=== PATIENT | female | born 1965 | race Caucasian/White ===

== ENCOUNTER 2020-07-26 12:39 | Outpatient (REF) | payer OTHER, SELFPAY ==
--- NOTE | 2020-07-26 12:45 | MM_ITS ---
EXAMINATION: MM SCREENING DIGITAL BREAST TOMOSYNTHESIS, BILATERAL CLINICAL INFORMATION: Screening. Asymptomatic. The lifetime risk of breast cancer based on the Tyrer-Cuzick Model is 7%. COMPARISON: Mammography: 07/21/2019, 07/15/2018, 01/24/2017, 01/10/2017 TECHNIQUE: Digital breast tomosynthesis is performed in both the craniocaudal and mediolateral oblique views along with computer-aided detection (CAD). Synthesized 2D images are generated from the tomosynthesis. FINDINGS: There are scattered areas of fibroglandular density (ACR BI-RADS breast composition Category b). There are no significant masses, abnormal calcifications, or other abnormalities. Small nodular asymmetry mid outer right breast on CC view is stable from prior exams. There is no developing density. The axilla and skin contours are unremarkable. MM/MM tomosynthesis screening BI IMPRESSION: No significant changes from prior studies. ASSESSMENT: BI-RADS 2: Benign RECOMMENDATION: Routine annual mammography screening. This patient's information was entered into a reminder system with a target due date for their next mammogram.
== END 2020-07-26 12:40 | disposition home or self-care (01) ==
LOC: HO.MAMMO 12:39
PROVIDERS: Visit Provider Internal Medicine
DX: Z12.31 Encounter for screening mammogram for malignant neoplasm of breast (principal)
CPT/HCPCS: 77063; 77067

== ENCOUNTER 2020-09-07 12:55 | Outpatient (REF) | payer MEDICAID, SELFPAY ==
--- NOTE | 2020-09-08 16:04 | MHC.AU.P13 ---
Adult Audiological Evaluation Date of Visit: 09/07/20 Reason for Appointment: Audiological evaluation to monitor the status of patient's hearing loss. Patient notes that she still has some trouble hearing even with the hearing aids and that the left aid has been intermittent. She denies any changes to her medical history. Previous Hearing Test [place] [facility] [place] Mild sensorineural hearing loss in the left ear, moderate to moderately severe mixed hearing loss in the right ear. Ear History: Family History of Hearing Loss?: Yes: Parents and son Ear Infections in Childhood: Both Ears Previous Ear Surgery: Right Ear Bothersome Tinnitus/Ringing/Noises in Ears: Both Ears Medical History: Medical History: Unremarkable Medical History Hearing Instrument History- Right Ear: Economic Analysis Director: Phonak Model: [place] microP Serial Number: [id number] Battery Size: 13 Repair Warranty: Loss and Damage Warranty: Dispensed By: [facility] Date of Fittin01/19/2012 Hearing Instrument History- Left Ear: Economic Analysis Director: Phonak Model: Veronica microP Serial Number: [id number] Battery Size: 13 Warranty: Loss and Damage Warranty: Dispensed By: [facility] Date of Fittin01/19/2012 Otoscopy: Right Ear: Mostly occluding cerumen. Unable to view TM. Did not attempt removal. Left Ear: Unremarkable Tympanometry: Tympanometry performed due to: History of conductive hearing loss Right Ear: Non-compliant Middle Ear System (Type B), Large ear canal volume suggestive of Tympanic Membrane Perforation Left Ear: Normal Middle Ear System (Type A) Hearing Evaluation: Transducer(s) Used: Insert Earphones, Bone Conduction Method: Conventional Audiometry Stimuli Used: Pure Tones Right Ear: Description of Hearing: Severe hearing loss at 250 Hz, rising to a moderately severe conductive hearing loss at 500 Hz, and moderately severe mixed hearing loss from 1799-7318 Hz. Left Ear: Description of Hearing: Mild hearing loss at 250 Hz, mild conductive hearing loss at 500 Hz, sloping to a moderate mixed hearing loss at 1000 Hz, a moderate sensorineural hearing loss at 2000 Hz, and a moderate mixed hearing loss 5489-2313 Hz. Speech Recognition Threshold (SRT): Method Used: Monitored Live Voice Stimuli Used: Spondee Words Right Ear: 60 dBHL Left Ear: 40 dBHL Word Discrimination: Method: Recorded Lists Word Lists Used: NU-6 Right Ear: 88% at 85 dBHL Left Ear: 100% at 80 dBHL Comparison: Compared to the most recent evaluation: Thresholds have decreased bilaterally. Recommendations: Audiological re-evaluation in one year. Trial with amplification is recommended. Medical clearance from a physician is required before fitting. Hearing Aid Fitting will be scheduled when all materials arrive. Follow-up with physician for cerumen removal. Referral to Ear, Nose, and Throat to address middle ear dysfunction. Hearing aid maintenance performed today. Hearing aid(s) reprogrammed with updated test results. See Hearing Aid Evaluation report for more information. See Hearing Aid Follow-Up note for more information. Recommend follow-up with her ENT Dr. Hankins. She states that she hasn't been seen by ENT in over 5 years. Given large ear canal volume suggestive of TM perforation in the right ear and the build-up of cerumen in the right canal, it is recommended that she see ENT before returning for a hearing aid fitting. Updated amplification is recommended. Discussed options. Medical clearance is being requested and then aids will be ordered. Diagnosis: Primary Diagnosis: H90.6 Mixed Hearing Loss, Bilateral Services Performed: Comprehensive Audiological Evaluation (CPT 07104) Tympanometry (CPT 51110) Signature: Provider: Cornel Downey, CCC-A
--- NOTE | 2020-09-09 08:55 | MHC.AU.MED ---
Medical Clearance for Hearing Instrumentation Date: 09/09/20 Patient Name: Tracey Singh Date of : 1965 Primary Care Provider: Referring Provider: Marion Roland MD We have seen your patient on 09/09/20 and have determined that they are a candidate for amplification (See accompanying report). Specifically, they would benefit from: Hearing aid use in both ears There is a statute that addresses Medical Evaluation Requirements prior to fitting a patient with a hearing aid. According to [place] statute 265 CMR:6.03(1), (a) General. Except as provided in 265 CMR 6.03(1)(b), a youth support worker shall not sell a hearing aid unless the prospective user has presented to the youth support worker a written statement signed by a licensed physician that states that the patient's hearing loss has been medically evaluated and the patient may be considered a candidate for a hearing aid. The medical evaluation must have taken place within the preceding six months. Please note: Due to the [place] Statute referenced above, we cannot accept a signature other than that of a licensed physician. MERCHANDISING TEAM LEAD and PA signatures cannot be accepted. I am in agreement with the above recommendation. There is no medical contraindication for hearing instrumentation. Physician Signature Date Physician Name (Printed)
--- NOTE | 2020-09-09 08:55 | MHC.AU.P13 ---
Hearing Aid Evaluation- Binaural Date of Visit: 09/07/20 Description of Hearing: Mild to moderate mixed hearing loss in the left ear, moderately severe to severe mixed hearing loss in the right ear. Current Hearing Instrument Information: 2011 Phonak Veronica BTE Additional Information: Ms. Lopez is due for updated amplification. She notes that her current left hearing aid is intermittent and she doesn't always hear well. Binaural amplification is recommended to facilitate improved communication. She is interested in LANETTE style hearing aids. Could not take earmold impressions today due to wax in the right ear. If she is not happy with the domes, we can order earmolds later when her ear is clear. Hearing Instrument Selection: Right Ear: Museum Registrar: Phonak Model: [employer] P70-13T Battery Size: 13 Color: Black Technology Adoption Manager: Size 1 M Type of Dome: Power Left Ear: Museum Registrar: Phonak Model: [employer] P70-13T Battery Size: 13 Color: Black Technology Adoption Manager: Size 1 M Type of Dome: Vented Plan: Plan of Care for Hearing Instrument Fitting: Patient wishes to purchase hearing aids as prescribed Action Taken/Action Needed: Medical Clearance to be requested from PCP/ENT Hearing Fitting to be scheduled when materials arrive Comments: Aids will be ordered once Medical Clearance is received. Signature: Provider: Cornel Downey, CHERYL-A
== END 2020-09-07 12:56 | disposition home or self-care (01) ==
LOC: HO.SH 12:55
PROVIDERS: Visit Provider Internal Medicine
DX: Z46.1 Encounter for fitting and adjustment of hearing aid (principal); H90.6 Mixed conductive and sensorineural hearing loss, bilateral
CPT/HCPCS: 92557; 92567; 92591; 92593; 99499

== ENCOUNTER 2020-10-06 13:34 | Outpatient (REF) | payer MEDICAID, SELFPAY | END 2020-10-06 13:35 | disposition home or self-care (01) | LOC: HO.HAP 13:34 | PROVIDERS: Visit Provider Internal Medicine | DX: Z46.1 Encounter for fitting and adjustment of hearing aid (principal) | CPT/HCPCS: V5011; V5020; V5160; V5261; V5266; V5275 ==

== ENCOUNTER 2020-10-22 09:07 | Outpatient (REF) | payer MEDICAID, SELFPAY | END 2020-10-22 09:08 | disposition home or self-care (01) | LOC: HO.HAP 09:07 | PROVIDERS: Visit Provider Internal Medicine | DX: Z46.1 Encounter for fitting and adjustment of hearing aid (principal); H90.6 Mixed conductive and sensorineural hearing loss, bilateral | CPT/HCPCS: V5264 ==

== ENCOUNTER 2022-01-19 12:28 | Outpatient (REF) | payer MEDICAID, SELFPAY | END 2022-01-19 12:29 | disposition home or self-care (01) | LOC: HO.HAP 12:28 | PROVIDERS: Visit Provider Nurse Practitioner | DX: Z46.1 Encounter for fitting and adjustment of hearing aid (principal); H90.6 Mixed conductive and sensorineural hearing loss, bilateral | CPT/HCPCS: 92593 ==

== ENCOUNTER 2022-01-20 14:20 | Outpatient (REF) | payer MEDICAID, SELFPAY | END 2022-01-20 14:21 | disposition home or self-care (01) | LOC: HO.HAP 14:20 | PROVIDERS: Visit Provider Nurse Practitioner | DX: Z13.89 Encounter for screening for other disorder (principal) ==

== ENCOUNTER 2022-04-06 11:02 | Outpatient (REF) | payer MEDICAID, SELFPAY | END 2022-04-06 11:03 | disposition home or self-care (01) | LOC: HO.SH 11:02 | PROVIDERS: Visit Provider Nurse Practitioner | DX: H90.6 Mixed conductive and sensorineural hearing loss, bilateral (principal) | CPT/HCPCS: 92557 ==

== ENCOUNTER 2022-05-02 12:41 | Outpatient (REF) | payer MEDICAID, SELFPAY ==
[2022-05-02 13:36] LABS: Hematocrit 42.9 % (37.0-47.0); Hemoglobin 14.4 g/dl (12.0-16.0); Mean Corpuscular HGB Conc 33.6 g/dl (31.0-35.0); Mean Corpuscular Hemoglobin 28.7 pg (27.0-33.0); Mean Corpuscular Volume 85.5 fL (80.0-98.0); Mean Platelet Volume 11.4 fL (9.4-12.3); Platelet Count 204 X10*3/uL (160-400); Red Blood Count 5.02 X10*6/uL (4.20-5.50); White Blood Count 7.3 X10*3/uL (4.8-10.8)
[2022-05-02 14:08] LABS: Alanine Aminotransferase 66 U/L (0-31); Alkaline Phosphatase 83 U/L (39-117); Anion Gap 14 (12-20); Aspartate Amino Transferase 51 U/L (5-31); Bilirubin Total 0.7 mg/dL (0.0-1.0); Blood Urea Nitrogen 11 mg/dL (9-16); Calcium 9.6 mg/dL (8.4-10.2); Carbon Dioxide 26 mmol/L (22-29); Chloride 104 mmol/L (96-108); Estimated Glomerular Filt Rate > 60; Glucose Random 112 mg/dL (60-115); Potassium 3.7 mmol/L (3.3-5.1); Sodium 140 mmol/L (135-145)
[2022-05-03 14:57] LABS: H Pylori Breath Test Negative (Negative)
== END 2022-05-02 12:42 | disposition home or self-care (01) ==
LOC: HO.LAB 12:41
PROVIDERS: PCP Nurse Practitioner; Visit Provider Nurse Practitioner Family
DX: K21.9 Gastro-esophageal reflux disease without esophagitis (principal); K59.01 Slow transit constipation; Z01.818 Encounter for other preprocedural examination
CPT/HCPCS: 36415; 80053; 83013; 85027; 99202

== ENCOUNTER 2022-08-11 15:11 | Outpatient (REF) | payer MEDICAID, SELFPAY | END 2022-08-11 15:12 | disposition home or self-care (01) | LOC: HO.HAP 15:11 | PROVIDERS: Visit Provider Nurse Practitioner | DX: Z46.1 Encounter for fitting and adjustment of hearing aid (principal); H90.6 Mixed conductive and sensorineural hearing loss, bilateral | CPT/HCPCS: 92593; 99499 ==

== ENCOUNTER 2022-08-14 16:13 | Outpatient (REF) | payer MEDICAID, SELFPAY | END 2022-08-14 16:14 | disposition home or self-care (01) | LOC: HO.HAP 16:13 | PROVIDERS: Visit Provider Nurse Practitioner | DX: Z13.89 Encounter for screening for other disorder (principal) ==

== ENCOUNTER 2022-08-23 11:13 | Day surgery (SDC) | payer MEDICAID, SELFPAY ==
[2022-08-17 14:51] VITALS: BMI 30.9
--- NOTE | 2022-08-22 12:51 | P.CONAN_ITS ---
Documented by User: Emily Islas NP 08/22/22 12:52 HPI - Anesthesia Eval Consult details Narrative: 56yo F for Upper Endoscopy and Colonoscopy [facility] Past Medical History Medical History (Updated 08/17/22 @ 14:50 by Elissa Hernandez RN) Diabetes mellitus GERD (gastroesophageal reflux disease) Family History Family History (Updated 05/02/22 @ 11:24 by Scott Paulino) Mother Diabetes Heart disease High cholesterol Father Heart disease Sister High cholesterol Diabetes Brother High cholesterol Heart disease Diabetes Surgical History Surgical History (Updated 08/17/22 @ 14:38 by Elissa Hernandez RN) History of cholecystectomy Hx of external ear surgery Hx of tubal ligation Social History Social History (Updated 04/27/22 @ 16:04 by Scott Paulino) Household Members: Spouse Are you a primary behavioral health care coordinator to a significant other at home: No Do you presently have visiting nurse or other home services: No Alcohol intake: never Patient Tobacco Use Status: Never used Tobacco e-Cigarette/Vaping Use: Never Used Use of substances other than those prescribed or required for medical reasons: No Have you been hit, kicked, punched, or otherwise hurt by someone within the past year? If so, by whom?: No Are you DNR?: No Advance Directives: No Advance Directives Information Provided: Yes (brochure mailed) Advance Directives on File: No Recently lost weight without trying: No Eating poorly because of decreased appetite: No Nutrition Risks: No Nutritional Risk Poor oral hygiene: No (missing teeth upper & lower) Meds Allergies Allergy/AdvReac Type Severity Reaction Status Date / Time insulin glargine Allergy Intermediate Rash Verified 08/17/22 14:50 [From Lantus U-100 Insulin] Home Medications Medication Instructions Recorded Confirmed Last Taken Type metformin 500 mg tablet 500 mg PO BID 05/02/22 08/17/22 Unknown History cholecalciferol (vitamin D3) 25 25 mcg PO DAILY 08/17/22 08/17/22 Unknown History mcg (1,000 unit) capsule (Vitamin D3) Exam Exam Date and Time: August 22, 2022 1251 Height,Weight and Vital Signs: Height 5 ft 4 in Weight 81.647 kg Pertinent Lab Results Pertinent Lab Results: Laboratory Tests 05/02/22 05/02/22 12:53 12:53 WBC 7.3 Hgb 14.4 Hct 42.9 Plt Count 204 Sodium 140 Potassium 3.7 Chloride 104 Carbon Dioxide 26 BUN 11 Creatinine 0.81 Assessment and Plan Assessment Anesthesia Assessment: Chart Reviewed Documented by User: Ainsley Jones MD 08/23/22 11:44 [facility] Past Medical History Medical History (Updated 08/17/22 @ 14:50 by Elissa Hernandez RN) Diabetes mellitus GERD (gastroesophageal reflux disease) Family History Family History (Updated 05/02/22 @ 11:24 by Scott Paulino) Mother Diabetes Heart disease High cholesterol Father Heart disease Sister High cholesterol Diabetes Brother High cholesterol Heart disease Diabetes Family history of problems with anesthesia: No Surgical History Surgical History (Updated 08/17/22 @ 14:38 by Elissa Hernandez RN) History of cholecystectomy Hx of external ear surgery Hx of tubal ligation History of Problems with Anesthesia: No Social History Social History (Updated 04/27/22 @ 16:04 by Scott Paulino) Household Members: Spouse Are you a primary behavioral health care coordinator to a significant other at home: No Do you presently have visiting nurse or other home services: No Alcohol intake: never Patient Tobacco Use Status: Never used Tobacco e-Cigarette/Vaping Use: Never Used Use of substances other than those prescribed or required for medical reasons: No Have you been hit, kicked, punched, or otherwise hurt by someone within the past year? If so, by whom?: No Are you DNR?: No Advance Directives: No Advance Directives Information Provided: Yes (brochure mailed) Advance Directives on File: No Recently lost weight without trying: No Eating poorly because of decreased appetite: No Nutrition Risks: No Nutritional Risk Poor oral hygiene: No (missing teeth upper & lower) Meds Allergies Allergy/AdvReac Type Severity Reaction Status Date / Time insulin glargine Allergy Intermediate Rash Verified 08/17/22 14:50 [From Lantus U-100 Insulin] Home Medications Medication Instructions Recorded Confirmed Last Taken Type metformin 500 mg tablet 500 mg PO BID 05/02/22 08/17/22 Unknown History cholecalciferol (vitamin D3) 25 25 mcg PO DAILY 08/17/22 08/17/22 Unknown History mcg (1,000 unit) capsule (Vitamin D3) Exam Airway Mallampati Class: II TM Dist: >3cm Neck ROM: Full Heart: rrr Lungs: cts Assessment and Plan Assessment Anesthesia Assessment: Anesthesia Plan Discussed Final Anesthetic Review Family History of Problems with Anesthesia: No History of Problems with Anesthesia: No NPO: Yes ASA Class: II Final Preanesthetic Review: No Changes in Pt Med Stat, Meds/Allgs Chart Reviewed and Consent Obtained/Reviewed Patient Risk: Intermediate Procedure Risk: Intermediate Anesthetic Plan Anesthetic Plan: MAC: Disposition: Standard PACU
[2022-08-23 11:36] VITALS: BP 147/88; PULSE 79; RESP 18; TEMP 36.6; O2SAT 98; BMI 31.2
--- NOTE | 2022-08-23 11:38 | MHC.SHP ---
Pre-Procedural Eval Section A Date of Service: 08/23/22 Section B Chief Complaint: screening, reflux Relevant Family History (Specify if Yes): No Relevant Social History: None Present Medications: see Short Stay Collaborative assessment Medical History: Significant History (Diabetes mellitus GERD (gastroesophageal reflux disease)) History of Previous Operations: Relevant previous surgery/procedure and date(s) (History of cholecystectomy Hx of external ear surgery Hx of tubal ligation) Allergies: Allergies Allergy/AdvReac Type Severity Reaction Status Date / Time insulin glargine Allergy Intermediate Rash Verified 08/17/22 14:50 [From Lantus U-100 Insulin] Review of Systems Sugical H&P ROS: Negative: Constitution, Cardiovascular, Respiratory, Neurological, Psychiatric, Hem-Onc, Allergic/Immunologic, Gastrointestinal, Genitourinary, Musculoskeletal, Integumentary, Endocrine and Eyes/Ears/Nose/Throat Exam Surgical H&P Exam: Normal: HEENT, Normal: Heart, Normal: Lungs, Normal: Extremities, Normal: Abdomen, Normal: Skin and Normal: Neurological Plan Diagnosis/Plan: Unchanged I have reviewed the history and physical and performed a pertinent physical examination on my patient. No changes have occurred unless specified. Time Spent With Patient Time: Total time managing care of this patient today ____ minutes.
[2022-08-23 11:43] LABS: Glucose, Whole Blood 161 mg/dL (60-115)
[2022-08-23] MEDS: Lactated Ringers 1,000 ML 100 ML IVCONT (12:05)
--- NOTE | 2022-08-23 12:09 | W.PM.OPN ---
Operative Note Operative Note Date of Service: 08/23/22 Narrative: Operative Information Procedure Description: EGD, Colonoscopy Indication: reflux, colon screening Anesthesia: MAC FLEXIBLE TRANSORAL UPPER GASTROINTESTINAL ENDOSCOPY AND COLONOSCOPY PROCEDURE NOTE UPPER ENDOSCOPY Consent: Indications for the procedure and potential complications of bleeding, perforation, reaction to medications and missed diagnosis were discussed with the patient and informed consent was obtained. Instrument: Olympus GIF H 190 J mid size upper endoscope Monitoring: Vital signs and clinical assessment, continuous EKG monitoring, Pulse oximetry, Carbon Dioxide monitoring and blood pressure monitoring were done throughout the procedure. Procedure: The patient was placed in the left lateral decubitis position and pre-procedure medications were administered and a bite block was placed. The endoscope was inserted into the mouth and advanced under direct vision to the third part of duodenum. A careful inspection was made as the upper endoscope was withdrawn including a retroflexed examination of the proximal stomach; Findings and interventions are described below. Findings: Larynx:normal Esophagus: GE junction at 43 cm, diaphragm hiatus at 43 cm, some bogginess and erythema at GEJ, bx taken as well as from distal and proximal esophagus Stomach: Mild erythema. Biopsies were obtained. Grade 2 flap valve on retroflexed examination of the cardia. Duodenum: Normal bulb and descending duodenum, bx taken Intervention: Biopsies as noted above COLONOSCOPY Instrument: Olympus variable stiffness pediatric scope 190L Colonoscopy Monitoring: Vital signs and clinical assessment, continuous EKG monitoring, Pulse oximetry, Carbon Dioxide monitoring and blood pressure monitoring were done throughout the procedure. Colon withdrawal time was 8 minutes. Procedure: The patient was placed in the left lateral decubitis position and pre-procedure medications were administered. After a digital rectal examination of the ano-rectum, the video colonoscope was inserted into the rectum and advanced through the colon to the cecum/TI. The colonoscope was slowly withdrawn in a retrograde panoramic fashion and the colon mucosa was carefully examined including a retroflexed view of the rectum. Findings and interventions are described below. Procedure Difficulty:easy Findings: Terminal Ileum-not intubated due to prep Cecum:not well see due to poor prep Ascending Colon: normal Transverse Colon -normal Descending Colon:normal Sigmoid Colon: mild diverticulosis Rectum: Retroflexion with small internal hemorrhoids, grade I, 6-8 mm sessile polyp removed with cold forceps Anorectum - normal Colon preparation: [place] Bowel Preparation Scale Right colon; 1-2 (0 at the cecum) Transverse colon: 3 Left colon; 2 (0 = Unprepared colon segment with mucosa not seen due to solid stool that cannot be cleared. 1 = Portion of mucosa of the colon segment seen, but other areas of the colon segment not well seen due to staining, residual stool and/or opaque liquid. 2 = Minor amount of residual staining, small fragments of stool and/or opaque liquid, but mucosa of colon segment seen well. 3 = Entire mucosa of colon segment seen well with no residual staining, small fragments of stool or opaque liquid) Impression and Post Procedure Diagnosis: Endoscopy Findings: esophagitis gastritis Colonoscopy Findings: polyp internal hemorrhoids diverticular disease Plan: Await Pathology results Repeat Colonoscopy in 1 year due to poor view of cecum or earlier if clinically indicated High fiber diet leaflet avoid straining at stool, epsom salts and sitz bath, anusol supps or cream Above findings were reviewed with the patient and relevant handouts were provided if indicated.
[2022-08-23 12:38] VITALS: BP 108/74; PULSE 86; RESP 16; TEMP 36.4; O2SAT 98
[2022-08-23 12:53] VITALS: BP 116/76; PULSE 73; RESP 18; TEMP 36.4; O2SAT 97
== END 2022-08-23 13:36 | disposition home or self-care (01) ==
PROVIDERS: Visit Provider Internal Medicine Gastroenterology
PROC: (CPT 45380; principal; 2022-08-23 11:40)
DX: Z12.11 Encounter for screening for malignant neoplasm of colon (principal); K62.1 Rectal polyp; K57.30 Diverticulosis of large intestine without perforation or abscess without bleeding; K64.0 First degree hemorrhoids; K59.01 Slow transit constipation; K21.9 Gastro-esophageal reflux disease without esophagitis; K29.50 Unspecified chronic gastritis without bleeding; K20.80 Other esophagitis without bleeding; K44.9 Diaphragmatic hernia without obstruction or gangrene; E11.9 Type 2 diabetes mellitus without complications; Z79.84 Long term (current) use of oral hypoglycemic drugs; Z79.899 Other long term (current) drug therapy; Z88.8 Allergy status to other drugs, medicaments and biological substances; Z90.49 Acquired absence of other specified parts of digestive tract
CPT/HCPCS: 45380; 43239; 82947; 88305; 88342

== ENCOUNTER → 2022-09-05 10:57 | Outpatient (BNVA) | payer MEDICAID, SELFPAY | PROVIDERS: Visit Provider Nurse Practitioner Family | DX: K21.00 Gastro-esophageal reflux disease with esophagitis, without bleeding (principal); K57.90 Diverticulosis of intestine, part unspecified, without perforation or abscess without bleeding; Z98.890 Other specified postprocedural states | CPT/HCPCS: 99212 ==

== ENCOUNTER → 2022-12-01 13:39 | Outpatient (BNVA) | payer MEDICAID, SELFPAY | PROVIDERS: Visit Provider Nurse Practitioner Family | DX: K57.90 Diverticulosis of intestine, part unspecified, without perforation or abscess without bleeding (principal); K21.9 Gastro-esophageal reflux disease without esophagitis | CPT/HCPCS: 99212 ==

== ENCOUNTER 2023-12-05 13:02 | Outpatient (REF) | payer OTHER, SELFPAY ==
[2023-12-05 16:59] LABS: Alanine Aminotransferase 69 U/L (0-31); Albumin Level 4.2 g/dL (3.5-5.0); Alkaline Phosphatase 123 U/L (39-117); Anion Gap 16 (12-20); Aspartate Amino Transferase 46 U/L (5-31); Bilirubin Total 1.1 mg/dL (0.0-1.0); Blood Urea Nitrogen 12 mg/dL (9-16); Carbon Dioxide 24 mmol/L (22-29); Chloride 101 mmol/L (96-108); Cholesterol 251 mg/dL (<200); Estimated Glomerular Filt Rate > 60; Glucose Random 229 mg/dL (60-115); HDL Cholesterol 57 mg/dL (>40); LDL Cholesterol Calculated 158 mg/dL (<100); Potassium 4.2 mmol/L (3.3-5.1); Sodium 137 mmol/L (135-145); Total Protein 8.7 g/dL (6.5-8.0); Triglycerides 180 mg/dL (<150)
[2023-12-05 17:54] LABS: Microalbum/Creatinine Ratio Ur 34.8 ug/mg cr (<30)
== END 2023-12-05 13:03 | disposition home or self-care (01) ==
LOC: HO.HHCL 13:02
PROVIDERS: Visit Provider Nurse Practitioner Family
DX: E11.9 Type 2 diabetes mellitus without complications (principal)
CPT/HCPCS: 36415; 80053; 80061; 82043; 82570

== ENCOUNTER → 2023-12-25 08:45 | Outpatient (BNV) | payer SELFPAY | PROVIDERS: PCP Nurse Practitioner Family; Visit Provider Radiology Diagnostic Radiology | DX: Z12.31 Encounter for screening mammogram for malignant neoplasm of breast (principal) | CPT/HCPCS: 77063; 77067 ==

== ENCOUNTER 2023-12-25 09:09 | Outpatient (REF) | payer OTHER, SELFPAY | END 2023-12-25 09:10 | disposition home or self-care (01) | LOC: HO.MAMMO 09:09 | PROVIDERS: PCP Nurse Practitioner Family; Visit Provider Nurse Practitioner Family | DX: Z12.31 Encounter for screening mammogram for malignant neoplasm of breast (principal) | CPT/HCPCS: 77063; 77067 ==

== ENCOUNTER 2024-01-31 22:20 | Emergency (ER) | payer OTHER, SELFPAY ==
--- NOTE | ~2024-01-31 | XR_ITS ---
EXAMINATION: XR LUMBOSACRAL SPINE CLINICAL INFORMATION: Fall COMPARISON: 12/23/2015 TECHNIQUE: Three views of the lumbosacral spine. FINDINGS: No acute fracture. Minimal left convex lumbar curvature. Facet arthropathy is evident at L5-S1. Mild degenerative disc disease in lower lumbar spine, characterized primarily by endplate osteophytes. Vertebral disc heights appear relatively well-preserved. Vertebral body heights are normal. Surgical clips are present in the right upper quadrant. No acute soft tissue findings. XR/XR lumbar spine 2-3V IMPRESSION: 1. No acute fracture or malalignment in the lumbar spine. 2. Mild degenerative disc disease in the lower lumbar spine.
[2024-01-31 22:32] VITALS: BP 142/118; PULSE 90; RESP 18; TEMP 36.9; O2SAT 98; BMI 31.8
[2024-02-01 04:00] VITALS: BP 143/75; PULSE 78; RESP 18; TEMP 36.8; O2SAT 97
--- NOTE | 2024-02-01 04:27 | ED_ITS ---
HPI - Fall General Chief Complaint: Fall Stated Complaint: fell 01/29 tailbone pain Time Seen by Provider: 02/01/24 04:06 Source: patient Mode of arrival: ambulatory Limitations: no limitations History of Present Illness ED Provider: olimpia LE Narrative: Apparently patient has slipped and fell hitting her tailbone to the edge of the bathtub about 2 days ago since then having pain especially when she sits no bladder or bowel involvement no other injuries Related Data Home Medications ?Medication ?Instructions ?Recorded ?Confirmed metformin 500 mg tablet 500 mg PO BID 05/02/22 08/17/22 cholecalciferol (vitamin D3) 25 25 mcg PO DAILY 08/17/22 08/17/22 mcg (1,000 unit) capsule (Vitamin D3) Previous Rx's ?Medication ?Instructions ?Recorded pantoprazole 40 mg tablet,delayed 40 mg PO DAILY #90 tabs 09/05/22 release docusate sodium 100 mg capsule 100 mg PO BEDTIME #90 caps 12/01/22 ibuprofen 600 mg tablet 600 mg PO Q6H PRN fever or pain 02/01/24 #30 tabs Allergies Allergy/AdvReac Type Severity Reaction Status Date / Time insulin glargine Allergy Intermediate Rash Verified 01/31/24 22:37 [From Lantus U-100 Insulin] Review of Systems Review of Systems: Yes all other systems are reviewed and are negative PMFSH Past Medical History Medical History GERD (gastroesophageal reflux disease) Diabetes mellitus Surgical History Hx of colonoscopy History of cholecystectomy Hx of tubal ligation Hx of external ear surgery Family History Family History Mother Diabetes Heart disease High cholesterol Father Heart disease Sister High cholesterol Diabetes Brother High cholesterol Heart disease Diabetes Social History Social History Household Members: Spouse Are you a primary district manager primary care sales to a significant other at home: No Do you presently have visiting nurse or other home services: No Alcohol intake: never Patient Tobacco Use Status: Never used Tobacco e-Cigarette/Vaping Use: Never Used Advance Directives: No Advance Directives Information Provided: Yes Do you have a plan to hurt others: No Plan Physical Exam Vital Signs: Vital Signs: Last Vital Signs Temp 98.3 F 02/01/24 05:16 Pulse 78 02/01/24 05:16 Resp 18 02/01/24 05:16 BP 143/75 H 02/01/24 05:16 Pulse Ox 97 02/01/24 05:16 O2 Del Method Room Air 02/01/24 05:16 BMI result Body Mass Index 31.8 Appearance: Alert. Oriented X3. No acute distress. ENT: Pharynx normal. Oral Mucosa moist Neck: Normal inspection. Neck supple. CVS: Normal heart rate and rhythm. Pulses normal. Respiratory: No respiratory distress. Equal air entry bilateral, Abdomen: Soft and nontender. Bowel sounds are present, back; tender at sacral area no ecchymosis or swelling Skin: Skin warm and dry. Normal skin color. Normal skin turgor. Extremities: No lower extremity edema. No calf tenderness Neuro: Oriented X 3. No motor deficit. No sensory deficit.No cerebellar signs , cranial nerves II-XII intact Medications Administered Discontinued Medications Generic Name Dose Route Start Last Admin Trade Name Freq PRN Reason Stop Dose Admin Oxycodone HCl 5 mg 02/01/24 04:27 02/01/24 05:05 Oxycodone Hcl Immed Release 5 Mg Tablet PO 02/01/24 04:28 5 mg ONCE ONE Administration Medical Decision Making Medical Decision Making [facility] Narrative: Patient with sacral contusion x-ray negative for fracture all the tip of the sacrum was not included in x-ray will discharge patient home on ibuprofen for pain Independent Interpretation I performed an independent interpretation of an: Plain X-Ray Radiology Impression Discussion of test interpretation with radiology: I have reviewed the radiologist's reading. Discharge Plan Discharge Clinical Impression: Contusion of sacrum Patient Disposition: Home, Self-Care Instructions: Acute Low Back Pain (ED) Additional Instructions: Your lumbar spine x-rays negative for fracture Likely have contusion of the sacrum Use air donut to sit on to relieve pressure Ibuprofen for pain Prescriptions: New ibuprofen 600 mg tablet 600 mg PO Q6H PRN (Reason: fever or pain) Qty: 30 0RF No Action cholecalciferol (vitamin D3) [Vitamin D3] 25 mcg (1,000 unit) Capsule 25 mcg PO DAILY pantoprazole 40 mg tablet,delayed release (DR/EC) 40 mg PO DAILY Qty: 90 2RF Rx Instructions: take one tablet half an hour before breakfast docusate sodium 100 mg capsule 100 mg PO BEDTIME Qty: 90 3RF metformin 500 mg tablet 500 mg PO BID Stand Alone Forms: Work/School Release Interventions: ED Discharge Assessment Last Done: 02/01/24 05:16 Discharge Date/Time: 02/01/24 05:18 Print Language: Algerian
[2024-02-01] MEDS: oxyCODONE HCl Immed Release 5 MG TABLET PO (05:05)
[2024-02-01 05:16] VITALS: BP 143/75; PULSE 78; RESP 18; TEMP 36.8; O2SAT 97
== END 2024-02-01 05:18 | disposition home or self-care (01) ==
PROVIDERS: Emergency Provider Internal Medicine
DX: S30.0XXA Contusion of lower back and pelvis, initial encounter (principal); M54.50 Low back pain, unspecified; W18.2XXA Fall in (into) shower or empty bathtub, initial encounter; Y93.9 Activity, unspecified; Y92.002 Bathroom of unspecified non-institutional (private) residence as the place of occurrence of the external cause; Y99.8 Other external cause status
CPT/HCPCS: 72100; 99284

== ENCOUNTER → 2024-12-30 09:00 | Outpatient (BNV) | payer SELFPAY | PROVIDERS: Visit Provider Internal Medicine | DX: Z12.31 Encounter for screening mammogram for malignant neoplasm of breast (principal) | CPT/HCPCS: 77063; 77067 ==

== ENCOUNTER 2024-12-30 09:37 | Outpatient (REF) | payer OTHER, SELFPAY ==
--- OUTSIDE RECORDS SUMMARY | 2024-12-30 10:14 | XMS_ITS | Clinical Summary ---
Author Organization [employer] Address [address] [place] [address] [address] [place] [address] Care Team Providers Care Concrete Floor Installer Name Role Phone Paula Echavarria NP Primary Care Provider [phone] Allergies Active Allergy Reactions Criticality Noted Date Comments Insulin Glargine Itching 07/21/2022 Medications acetaminophen (Tylenol) 500 MG tablet take 1 tablet (500MG) by oral route every 6 hours as needed 8 Active ibuprofen 600 MG tablet Take 1 tablet by mouth every 8 (eight) hours. 2 Active dulaglutide (Trulicity) 0.75 MG/0.5ML solution pen-injectorIn dications:Type 2 diabetes mellitus without complication, without long-term current use of insulin ([facility]) INJECT ONE PEN (=0.75MG) SUBCUTANEOUSLY ONCE A WEEK DIRECTED 2 mL 4 Active Blood Glucose Monitoring Suppl (FreeStyle Hunt Lite) w/Device kitIndications :Type 2 diabetes mellitus without complication, without long-term current use of insulin (CMS/[facility]) Use to test blood sugar 2 times daily 1 kit 1 4 Active Blood Pressure Monitoring (Blood Pressure Cuff) miscIndication s:Elevated blood pressure reading Check bp daily 1 each 4 Active Alcohol Swabs (Alcohol Prep) 70 % padsIndication s:Type 2 diabetes mellitus without complication, without long-term current use of insulin (CMS/HCC) TEST BLOOD SUGAR TWICE DAILY 100 each 5 4 Active TRUEplus Lancets 33G miscIndication s:Type 2 diabetes mellitus without complication, without long-term current use of insulin (CMS/HCC) USE DIRECTED TO TEST BLOOD SUGAR TWICE DAILY 100 each 5 4 Active metFORMIN, OSM, (Fortamet) 500 MG 24 hr tabletIndicati ons:Type 2 diabetes mellitus without complication, without long-term current use of insulin (CMS/HCC) Take 1 tablet (500 mg) by mouth with breakfast and with evening meal. Do not crush, chew, or split. 60 tablet 1 4 Active lisinopril (Prinivil) 10 MG tabletIndicati ons:Elevated blood pressure reading Take 1 tablet (10 mg) by mouth Once per day. 30 tablet 2 4 Active FREESTYLE LITE test stripIndicatio ns:Type 2 diabetes mellitus without complication, without long-term current use of insulin (CMS/HCC) TEST BLOOD SUGAR EVERY TWELVE HOURS 100 strip 1 4 Active Active Problems Problem Noted Date Diagnosed Date Liver function abnormality 12/25/2023 Screening mammogram for breast cancer 12/10/2023 HTN (hypertension) 12/04/2023 Assessment & Plan (02/19/2024 6:19 PM EDT): At goal , tolerating lisinopril, continue Assessment & Plan (12/05/2023 7:58 PM EDT): Labs ordered today, plans to measure bp at home and rtc in 4-6 weeks with readings, plan to initiate sloane/arb Healthcare maintenance 12/03/2023 Assessment & Plan (12/03/2023 6:52 PM EDT): She requires a pap smear. She is post menopausal and denies any AUB. Colonoscopy is scheduled for 08/23/22 along with endoscopy. Last Mammogram Birads 2 Benign done 2 years ago, Vitamin D deficiency 07/24/2022 High cholesterol 07/21/2022 Assessment & Plan (12/05/2023 8:00 PM EDT): Repeat labs, likely initiate statin, rtc in 4-6 weeks Type 2 diabetes mellitus wit hout complication, without long-term current use of insulin 02/27/2022 Assessment & Plan (03/20/2024 5:29 PM EDT): Sig improvement in sugars with addition of trulicity, rtc in 3 months Encouraged pt to consider statin, pt contemplative Assessment & Plan (02/19/2024 6:20 PM EDT): Pt willing to start trulicity, will report any side effects. Pt will also increase metformin to 500 mg bid. Monitor for gi side effects. Pt declines pharmacy, nutrition and dne referrals today, follow up in 4 weeks sooner prn Foot exam completed today, Referred for eye exam, Plan to add moderate intensity statin which we discussed breifly Assessment & Plan (12/05/2023 7:59 PM EDT): Elevated sugars consistent with pt report of untreated diabetes, pt reports she is asymptomatic currently, restart metformin, once tolerated add trulicity, potential side effect reviewed including contraindications and possible black box warnings Helicobacter pylori infection 02/15/2022 Sensorineural hearing loss 01/10/2013 Strain of neck muscle 12/19/2012 Gallbladder calculus 07/17/2012 Multiple joint pain 01/24/2012 Obesity (BMI 30-39.9) 01/03/2012 Assessment & Plan (12/05/2023 7:59 PM EDT): Reviewed importance of nutrition, pt reports often eating whatever she can grab with time available Backache 01/03/2012 Immunizations Immunization Administration Dates Next Due Pfizer Covid-19 Vaccine 12+ 01/19/2022,,06/01/2021 Pfizer Covid-19 Vaccine 12+ jax-sucrose (Reyna Cap) 01/19/2022 Tdap 02/08/2022 Social History Tobacco Use Types Packs/Day Years Used Date Smoking Tobacco: Former Cigarettes Q uit: 2002 Smokeless Tobacco: Never Tobacco Cessation:Counseling Given: Not Answered Alcohol Use Standard Drinks/Week Comments Never 0 (1 standard drink = 0.6 oz pur e alcohol) Alcohol Answer Date Recorded Frequency of Alcohol Consumption Not on file 02/19/2024 Average Number of Drinks Not on file 024 Frequency of Binge Drinking Not on file 02/03 Score 0 02/19/2024 Depression Answer Date Recorded Patient Health Questionnaire-9 Score 0 12/04/2023 Patient Health Questionnaire-9 Score 0 12/04/2023 Last PHQ-9: Questionnaire Data Not on file 0 12/04/2023 Housing Stability Answer Date Recorded What is your housing situation today? I have ale mendez 11/27/[address] you li ve. Do you have problems with any of the following? None of the above 11/27/2023 Food Insecurity Answer Date Recorded Within the past 12 months, y ou worried that your food would run out before you got money to buy more: Never True 11/27/2023 Within the past 12 months,th e food you bought just didn't last and you didn't have enough money to get more: Never True Transportation Answer Date Recorded In the past 12 months, has l ack of transportation kept you from medical appts, meetings, work or from getting things needed for daily living? No 11/27/2023 Utilities Answer Date Recorded In the past 12 months, has t he electric, gas, oil or water company threatened to shut off services in your home? No 11/27/2023 Depression Answer Date Recorded Patient Health Questionnaire-2 Score 0 12/04/2023 Comments Unknown Sex and Gender Information Value Date Recorded Sex Assigned at Female 06/05/2022 10:17 AM EDT Legal Sex Female 10:17 AM EDT Gender Identity Choose not to disclose 10:17 AM EDT Sexual Orientation Choose not to disclose 2021 10:17 AM EDT Last Filed Vital Signs Vital Sign Reading Time Taken Comments Blood Pressure 118/81 03/18/2024 1:52 PM EDT Pulse 80 03/18/2024 1:52 PM EDT Temperature 36.8 ??C (98.2 ??F) 03/18/2024 1:52 PM ED T Respiratory Rate 26 03/18/2024 1:52 PM EDT Oxygen Saturation 99% 03/18/2024 1:52 PM EDT Inhaled Oxygen Concentration - - Weight 82.6 kg (182 lb) 03/18/2024 1:52 PM EDT Height 162.6 cm (5' 4 ) 03/18/2024 1:52 PM EDT Body Mass Index 31.24 03/18/2024 1:52 PM EDT Plan of Treatment Health Maintenance Due Date Last Done Comments CT Colonography 1967 FIT DNA/Cologuard 1967 FIT 1967 FOBT 1967 HIV Screening 1965 Sigmoidoscopy 1967 Disability Screening 1965 Eye Exam 12/20/1977 Hepatitis C Screening 12/20/1985 Hepatitis B Vaccines (1 of 3 - 19+ 3-dose series) 12/20/1986 Pneumococcal Vaccine: 50+ Years (1 of 2 - PCV) 12/20/1986 Pap Smear 12/20/1988 Cervical Cancer Screening 12/20/1997 HPV/Cotest 12/20/1997 Zoster Vaccines (1 of 2) 12/20/2017 COVID-19 Vaccine ( season) 2024 01/19/2022, 01/19/2022, 06/22/2021, Additional history exists Influenza Vaccine (#1) 2024 Diabetes: Hemoglobin A1C 05/21/2024 024, 12/04/2023, 07/21/2022, Additional history exists SDOH Screening 11/26/2024 11/27/2023 Depression Screening 12/03/2024 12/04/2023, 12/04/19 24 Diabetes: Urine Protein Screening 12/04/2024 12/05/2023, 02/24/2022 Lipid Panel 12/04/2024 12/05/2023, 07/06, 02/08/2022 Mammogram 12/24/2024 12/25/2023, 07/07, 07/26/2020, Additional history exists Alcohol/Substance Use Screening 02/18/2025 02/19/2024 Diabetes: Foot Exam 02/18/2025 02/19/2024, 02/19/2024, 02/19/2024, Additional history exists Tobacco Screening 03/18/2025 03/18/2024 DTaP/Tdap/Td Vaccines (2 - Td or Tdap) 02/09/2032 02/08/2022 Colonoscopy 08/23/2032 08/23/2022 Colorectal Cancer Screening 08/23/2032 RSV Patients and Patients Aged 60 years or older (1 - 1-dose 75+ series) 12/20/2042 HIB Vaccines Aged Out No longer eligi ble based on patient's age to complete this topic HPV Vaccines Aged Out No longer eligi ble based on patient's age to complete this topic Hepatitis A Vaccines Aged Out No long er eligible based on patient's age to complete this topic IPV Vaccines Aged Out No longer eligi ble based on patient's age to complete this topic Meningococcal B Vaccine Aged Out No l onger eligible based on patient's age to complete this topic Meningococcal Vaccine Aged Out No nga rashel eligible based on patient's age to complete this topic RSV under 20 months Aged Out No longe r eligible based on patient's age to complete this topic Rotavirus Vaccines Aged Out No longer eligible based on patient's age to complete this topic Procedures Procedure Name Priority Date/Time Associated Diagnosis Comments POCT GLYCATED HEMOGLOBIN, TOTAL Routine 02/19/2024 1:57 PM EDT Type 2 diabetes mellitus without complication, without long-term current use of insulin (CMS/HCC) BI MAMMOGRAM SCREENING TOMOSYNTHESIS BILATERAL Routine 12/25/2023 9:28 AM EDT Screening mammogram for breast cancer ALBUMIN, RANDOM URINE W/CREATININE Routine 12/05/2023 1:04 PM EDT Type 2 diabetes mellitus without complication, without long-term current use of insulin (CMS/HCC) LIPID PANEL, STANDARD Routine 12/05/2023 1:04 PM EDT Type 2 diabetes mellitus without complication, without long-term current use of insulin (CMS/HCC) HM COLONOSCOPY Routine 08/23/2022 from Last 3 Months or Most Recently Relevant to Health Maintenance Results * (ABNORMAL) POCT HGB A1C (02/19/2024 1:57 PM EDT) Hemoglobin A1C 11.0(A) 4.0 - 6.0 % QC Media Lot # [id number] Lot# Expiration Date [id number] Blood 02/19/2024 1:57 PM EDT us Paula Echavarria DREDGE OPERATOR SUPERVISOR POINT OF CARE TEST ENTER/EDIT OR DERABLES Final Result * BI Mammogram Screening Tomosynthesis Bilateral (12/25/2023 9:28 AM EDT) Anatomical Region Laterality Modality Breast Bilateral Mammography 12/25/2023 9:28 AM EDT Narrative 01/25/2024 8:55 AM EDT ? [facility] ? [address] ?[place], [place] [id number] ? Mammography Report ? Signed ? Patient: Singh,Tracey ?MR#: [id number] ?? 24 ? : 1965 ?Acct:[id number] ? Age/Sex: 58 / F ?ADM Date: 12/25/23 ? Loc: HO.MAMMO ? Attending Dr: Paula Echavarria DREDGE OPERATOR SUPERVISOR ? Ordering Physician: Blanquita Nix ?Results: 1Negative ? Date of Service: 12/25/23 ?Follow Up: 1 Year From Orig ?? inal Mammogram ? Procedure(s): MM tomosynthesis screening BI ?? Accession Number(s): [id number] ? cc: Paula Echavarria DREDGE OPERATOR SUPERVISOR; Blanquita Nix ? EXAMINATION: ?? MM SCREENING DIGITAL BREAST TOMOSYNTHESIS, BILATERAL ? CLINICAL INFORMATION: ? Screening. Asymptomatic. ? COMPARISON: ?? Mammography: This study is compared with prior exams dating back to ?? 2017. ? TECHNIQUE: ?? Digital breast tomosynthesis is performed in both the craniocaudal and ?? mediolateral oblique views along with computer-aided detection (CAD). ?? Synthesized 2D images are generated from the tomosynthesis. ? FINDINGS: ?? There are scattered areas of fibroglandular density (ACR BI-RADS breast ?? composition Category b). ? There are no significant masses, abnormal calcifications, or other ?? abnormalities. ? MM/MM tomosynthesis screening BI ?? IMPRESSION: ?? No mammographic evidence of malignancy. ? ASSESSMENT: ? BI-RADS BI-RADS 1 - Negative ? RECOMMENDATION: ?? Routine annual mammography screening. ? 1 year F/U ? This examination should not preclude the clinical evaluation of a ?? suspicious palpable abnormality. ? This patient's information was entered into a reminder system with a ?? target due date for their next mammogram. ? Dictated By: ?Domi Driver MD ? Signed By: ?<Electronically signed by Domi Driver MD in OV> ? 01/25/24 0851 ? DD/ 7 ? TD/TT: ? District Plant Superintendent: ? Procedure Note Hill Hidalgo - 01/25/2024 [facility] [address] [place] [address] Mammography Report Signed Patient: Katt Singh#: [id number] 24 : 1965Acct:[id number] Age/Sex: 58 / FADM Date: 12/25/23 Loc: HO.MAMMO Attending Dr: Paula Echavarria NP Ordering Physician: Nova Nixults: 1Negative Date of Service: 12/25/23Follow Up: 1 Year From Orig inal Mammogram Procedure(s): MM tomosynthesis screening BI Accession Number(s): [id number] cc: Paula Echavarria NP; Blanquita Nix EXAMINATION: MM SCREENING DIGITAL BREAST TOMOSYNTHESIS, BILATERAL CLINICAL INFORMATION: Screening. Asymptomatic. COMPARISON: Mammography: This study is compared with prior exams dating back to 2017. TECHNIQUE: Digital breast tomosynthesis is performed in both the craniocaudal and mediolateral oblique views along with computer-aided detection (CAD). Synthesized 2D images are generated from the tomosynthesis. FINDINGS: There are scattered areas of fibroglandular density (ACR BI-RADS breast composition Category b). There are no significant masses, abnormal calcifications, or other abnormalities. MM/MM tomosynthesis screening BI IMPRESSION: No mammographic evidence of malignancy. ASSESSMENT: BI-RADS BI-RADS 1 - Negative RECOMMENDATION: Routine annual mammography screening. 1 year F/U This examination should not preclude the clinical evaluation of a suspicious palpable abnormality. This patient's information was entered into a reminder system with a target due date for their next mammogram. Dictated By: Domi Driver MD Signed By: <Electronically signed by Domi Driver MD in OV> 01/25/24 0851 DD/ 7 TD/TT: District Plant Superintendent: us Blanquita Nix MD IMG BI PROCEDURES Final Result * (ABNORMAL) Albumin, Random Urine W/Creatinine (12/05/2023 1:04 PM EDT) Creatinine, Urine 315.69 mg/dL [facility] Microalbumin Urine 110.0 mg/L [facility] Microalbum Creatinine Ratio Ur 34.8(H) <30 ug/mg cr [facility] Comment:Albumin/Creatinine R atio Reference Ranges: Normal: < 30 ug/mg creatinine Microalbuminuria: 30 - 300 ug/mg creatinineClinical Albuminuria: > 300 ug/mg creatinine Urine (Urine, Random) 12/05/2023 1:04 PM EDT 12/05/2023 4:10 PM EDT us Paula Echavarria NP LAB URINE ORDERABLES Final Resul t [facility] [address] [place] [phone] * (ABNORMAL) Lipid Panel, Standard (12/05/2023 1:04 PM EDT) Triglycerides 180(H) <150 mg/dL [facility] Comment:Desirable Triglyceri de: less than 150 mg/dLBorderline High Triglyceride 150-199 mg/dLHigh Triglyceride: 200-499 mg/dLVery High Triglyceride: greater than or equal to 5OO mg/dL Cholesterol 251(H) <200 mg/dL [facility] Comment:Desirable Cholestero l: less than 200 mg/dLBorderline High Cholesterol: 200-239 mg/dLHigh Cholesterol: greater than 239 mg/dL LDL Cholesterol Calculated 158(H) <100 mg/dL [facility] Comment:Desirable LDL: less than 100 mg/dLNear Optimal/Above Optimal LDL: 110- 129 mg/dLBorderline High LDL: 130-159 mg/dLHigh LDL: 160-189 mg/dLVery High LDL: greater than or equal to 190 mg/dL HDL Cholesterol 57 >40 mg/dL [facility] Comment:Desirable HDL: great er than 40 mg/dL Note: This HDL assay may give artificially low results in patients with liver disease. Blood Venous blood specimen / Unknown 12/05/2023 1:04 PM EDT 12/05/2023 4:01 PM EDT us Paula Echavarria NP LAB BLOOD ORDERABLES Final Resul t [facility] [address] [place] [phone] * (ABNORMAL) Colonoscopy (08/23/2022) Colonoscopy Abnormal(A ) Normal us Historical Provider HEALTH MAINTENANCE Final Result from Last 3 Months or Most Recently Relevant to Health Maintenance Insurance [employer] PARTIAL Care Teams Concrete Floor Installer Relationship Specialty Start Date End Date Paula Echavarria NP [address] [place] [id number] PCP - General Family Medicine 09/04/23
== END 2024-12-30 09:38 | disposition home or self-care (01) ==
LOC: HO.MAMMO 09:37
PROVIDERS: Visit Provider Nurse Practitioner Family
DX: Z12.31 Encounter for screening mammogram for malignant neoplasm of breast (principal)
CPT/HCPCS: 77063; 77067

== ENCOUNTER 2025-06-23 12:11 | Outpatient (REF) | payer OTHER, SELFPAY ==
[2025-06-23 13:20] LABS: MANUAL DIFF FLAG NO
[2025-06-23 13:39] LABS: Hematocrit 46.0 % (37.0-47.0); Hemoglobin 15.4 g/dl (12.0-16.0); Imm Gran Abs Auto 0.03 X10*3/uL (0.00-0.03); Imm Gran Pct Auto 0.4 % (0.0-0.4); Lymphocytes Absolute Auto 3.4 X10*3/uL (1.2-4.9); Mean Corpuscular HGB Conc 33.5 g/dl (31.0-35.0); Mean Corpuscular Hemoglobin 27.7 pg (27.0-33.0); Mean Corpuscular Volume 82.9 fL (80.0-98.0); NRBC Abs Auto 0.000 X10*3/uL (0.0-0.012); NRBC Pct Auto 0.0 /100WBC (0.0-0.2); Platelet Count 188 X10*3/uL (160-400); Red Blood Count 5.55 X10*6/uL (4.20-5.50); White Blood Count 7.9 X10*3/uL (4.8-10.8)
[2025-06-23 14:13] LABS: Alanine Aminotransferase 55 U/L (0-31); Albumin Level 4.4 g/dL (3.5-5.0); Alkaline Phosphatase 121 U/L (39-117); Anion Gap 13 (12-20); Aspartate Amino Transferase 51 U/L (5-31); Blood Urea Nitrogen 11 mg/dL (9-16); Calcium 9.9 mg/dL (8.4-10.2); Carbon Dioxide 25 mmol/L (22-29); Chloride 105 mmol/L (96-108); Estimated Glomerular Filt Rate > 60; Potassium 4.1 mmol/L (3.3-5.1); Sodium 139 mmol/L (135-145); Total Protein 8.5 g/dL (6.5-8.0)
[2025-06-24 07:24] LABS: HIV Num 1 0.06 S/CO (0.00-0.99); ~HepC Num1 3.16 S/CO (0.00-0.79); ~Hepatitis C Antibody Reactive (Nonreactive)
[2025-06-26 17:43] LABS: HCV Log PCR <1.18 NOT DETECTED Log IU/mL (NOT DETECTED); HepC Viral Load <15 NOT DETECTED IU/mL (NOT DETECTED)
== END 2025-06-23 12:12 | disposition home or self-care (01) ==
LOC: HO.HHCL 12:11
PROVIDERS: PCP Nurse Practitioner Family; Visit Provider Nurse Practitioner Family
DX: Z11.59 Encounter for screening for other viral diseases (principal); Z11.4 Encounter for screening for human immunodeficiency virus [HIV]; E11.9 Type 2 diabetes mellitus without complications
CPT/HCPCS: 36415; 80053; 84443; 85025; 86803; 87389; 87522